=== PATIENT | female | born 1955 | race African-American/Black ===

== ENCOUNTER → 2016-12-21 | Outpatient (CLI) | payer MEDICARE ==
[~2016-12-21] MED LIST: AMBIEN PO; AMBIEN10 MG PO; ATIVAN0.5 M1 PO; ATORVASTATIN CA10 MG PO; BACTRIM DS TABL1 TAB PO; BISOPROLOL-HCTZ1 TAB PO; CIPRO PO; COLACE PO; DAKIN'S3840 ML TOP; DICLOFENAC SODI25 MG PO; DULOXETINE HCL60 MG PO; FLUOXETINE HCL20 M1 PO; GABAPENTIN300 M2 PO; GABAPENTIN300 MG PO; HYDROCODON-ACE1 EAC5 PO; HYDROCODONE/APA1 T16 PO; KROGER PHARMACY; LOPID600 MG PO; LORTAB 7.5-5001 TAB PO; METAXALONE800 M1 PO; MOBIC PO; NAPROSYN500 MG PO; NORVASC10 MG PO; PHENERGAN PO; PHENERGAN25 M1 PO; PRILOSEC PO; PROZAC PO; VITAMIN D250000 UNIT PO; ZANAFLEX4 M1 PO; [UNRECOGNIZED DRUG - OTHER] PO
--- NOTE | ~2016-12-21 | CR169 ---
[facility] A Service of [facility] RADIOLOGY TEXT RESULTS PATIENT: SAHIL KOROMA LOCATION: [facility] #: [id number] : 57 UNIT #: [id number] AGE: [address]: Dang Power APRN SEX: F ORDER DR: [id number] [facility] [address] [place], [place] [address] [id number] O MR#: [id number] [facility] #: [id number] NAME: SAHIL KOROMA : 1955 SEX: F STUDY DATE/TIME: 12/21/2016 11:53 UNIT: [facility] ROOM: STUDY DESCRIPTION: CR Knee 2 Views Lt Attending Physician: Dang Power Aprn Referring Physician: Dang Power Aprn Ordering Physician: Dang Power Aprn Primary Care Physician: Cornelius Pena M.D. MEDICAL IMAGING REPORT This report is preliminary unless electronic signature is present EXAM 2 views left knee. DATE: 12/21/2016 HISTORY Bilateral knee pain for 3-4 weeks. No known injury. COMPARISON None. FINDINGS No fracture or joint dislocation. There is moderate patellofemoral osteoarthritic change with posterior patellar osteophyte formation and mild joint space narrowing. There is prominent enthesophyte at the quadriceps tendon insertion upon anterosuperior patella. There may be trace suprapatellar joint effusion. Mild medial compartment joint space narrowing is present. Small marginal osteophytes project in the medial femoral condyle and the lateral tibial plateau. IMPRESSION 1. Small suprapatellar joint effusion and moderate patellofemoral compartment osteoarthritic change. 2. No acute fracture or dislocation of the left knee. Dictated by... Franny Obando M.D. THIS IS AN ELECTRONICALLY VERIFIED REPORT Franny Obando M.D. at 12/22/2016 8:56 AM [facility]ianad [facility] A Service of [facility] RADIOLOGY TEXT RESULTS PATIENT: SAHIL KOROMA [facility] #: [id number] : 57 UNIT #: [id number] AGE: [address]: Dang Power APRN SEX: F ORDER DR: TD: 12/22/2016 04:41 JOB #: [id number] MEDICAL IMAGING REPORT Page 1 of 1 COPY
--- NOTE | ~2016-12-21 | CR170 ---
[facility] A Service of [facility] RADIOLOGY TEXT RESULTS PATIENT: SAHIL KOROMA LOCATION: [facility] : 57 UNIT #: [id number] AGE: [address]: Dang Power APRN SEX: F ORDER DR: [id number] [facility] [address] [place], [place] [address] [id number] O MR#: [id number] Acc #: [id number] NAME: SAHIL KOROMA : 1955 SEX: F STUDY DATE/TIME: 12/21/2016 11:53 UNIT: [facility] ROOM: STUDY DESCRIPTION: CR Knee 2 Views Rt Attending Physician: Dang Power Aprn Referring Physician: Dang Power Aprn Ordering Physician: Dang Power Aprn Primary Care Physician: Cornelius Pena M.D. MEDICAL IMAGING REPORT This report is preliminary unless electronic signature is present EXAM Two views right knee. DATE 12/21/2016 HISTORY 61-year-old female with bilateral knee pain for 3-4 weeks. No known injury. FINDINGS No fracture. No dislocation. Moderate sized suprapatellar joint effusion. Patellofemoral osteoarthritic change is demonstrated with proliferative osteophyte formation along the articular surface. There is enthesophyte formation at the quadriceps tendon insertion upon the anterosuperior patella. Small lateral tibial patellar osteophyte formation is demonstrated. Medial and lateral compartment spaces appear fairly well preserved. No osteolytic or osteoblastic abnormality. No fracture. No dislocation. IMPRESSION 1. Moderate patellofemoral compartment osteoarthritic change. 2. Moderate suprapatellar joint effusion. 3. No evidence of acute fracture or dislocation. Dictated by... Franny Obando M.D. THIS IS AN ELECTRONICALLY VERIFIED REPORT Franny Obando M.D. at 12/22/2016 8:[address] [facility] A Service of [facility] RADIOLOGY TEXT RESULTS PATIENT: SAHIL KOROMA LOCATION: [facility] #: [id number] : 57 UNIT #: [id number] AGE: [address]: Dang Power APRN SEX: F ORDER DR: TD: 12/22/2016 04:07 JOB #: [id number] MEDICAL IMAGING REPORT Page 1 of 1 COPY
== END | disposition home or self-care (01) ==
LOC: CRAD 11:17
DX: M25.561 Pain in right knee (principal); M25.562 Pain in left knee; M25.461 Effusion, right knee; M25.462 Effusion, left knee; M17.0 Bilateral primary osteoarthritis of knee
CPT/HCPCS: 73560